=== PATIENT | female | born 1925 | race Caucasian/White ===

== ENCOUNTER 2016-09-06 20:11 | Emergency (ER) | payer MEDICARE, OTHER ==
[~2016-09-06] VITALS: Ht 157.5 cm; Wt 70.8 kg
[~2016-09-06 20:11] MED LIST: ACET650T10 PO; ASPI81TA2 PO; CARV6.252 PO; CLON0.2T PO; FERR-58 PO; FURO40TA5 PO; GLIM2TAB2 PO; INDO25CA PO; MULT1TAB73 PO; NIFE30TA7 PO; ROSU40TA PO; TRAM50TA2 PO
--- NOTE | 2016-09-06 20:36 | NUR ---
PT FAMILY STATES PT BP IS HIGH TODAY, PT IS NONSYMPTOMATIC. PT AOX3 [place] SPEAKING DRT AT BEDSIDE FOR EVAL. RR EVEN AND UNLABORED. NO SOB NOTED. NAD NOTED. NO NVD AT THIS TIME. PT GOWNED AND PLACED ON MONITOR WAITING FOR MD PHAN.
--- NOTE | 2016-09-06 20:42 | NUR ---
DR. OSPINA AT BEDSIDE FOR EVAL.
[2016-09-06] MEDS ORDERED: METOPROLOL TARTRATE 25 MG TABLET ONE (20:55)
[2016-09-06] MEDS ORDERED: METOPROLOL TARTRATE 25 MG TABLET PO ONE (21:00)
--- NOTE | 2016-09-06 21:02 | NUR ---
Patient discharged to home in stable condition. Written and verbal after care instructions given. Patient verbalizes understanding of instruction. ambulatory with a steady gait
[2016-09-06 21:05] VITALS: BP 173/69
== END 2016-09-06 21:05 | disposition home or self-care (01) ==
LOC: ER 20:13
DX: I10 Essential (primary) hypertension (principal); I25.10 Atherosclerotic heart disease of native coronary artery without angina pectoris; E11.9 Type 2 diabetes mellitus without complications; M19.90 Unspecified osteoarthritis, unspecified site; Z79.82 Long term (current) use of aspirin; Z79.899 Other long term (current) drug therapy
CPT/HCPCS: 93005; 99283; A4606; Z7610

== ENCOUNTER 2016-10-15 00:24 | Emergency (ER) | payer MEDICARE, OTHER ==
[~2016-10-15] VITALS: Ht 160 cm; Wt 65.8 kg
--- NOTE | 2016-10-15 01:00 | NUR ---
89 YO FEMALE BB FAMILY. PT IS ALERT X 3, C/O HIGH BLOOD PRESSURE. PT DENIES CP/SOB/N/V/ANY OTHER MEDICAL COMPLAINTS. PT AMBULATED TO ER BED, SKIN WARM AND DRY, RR EVEN AND UNLABORED. AWAITING ORDERS FROM PROVIDER
[2016-10-15] MEDS ORDERED: ENALAPRILAT DIHYD. (2.5MG/ML) 1.25 MG/ML VIAL IV ONE ×2 (01:29→01:30)
--- NOTE | 2016-10-15 01:40 | NUR ---
MEDICATED PT ORDERED
[2016-10-15 02:06] LABS: CALCIUM, SERUM 8.6 mg/dL (8.5-10.1); CREATININE 1.6 mg/dL (0.6-1.3); POTASSIUM 4.8 mmol/L (3.5-5.1)
--- NOTE | 2016-10-15 02:10 | NUR ---
PT SBP IS 127, MD NOTIFIED
[2016-10-15 02:35] LABS: APPEARANCE,URINE CLEAR (CLEAR); BILIRUBIN,URINE NEGATIVE (NEGATIVE); BLOOD, URINE NEGATIVE Ery/uL (NEGATIVE); COLOR,URINE YELLOW (YELLOW); KETONES,URINE NEGATIVE (NEGATIVE); LEUKOCYTE ESTERASE ,URINE NEGATIVE (NEGATIVE); NITRITE, URINE NEGATIVE (NEGATIVE); PH,URINE 5.5 (5.0-8.0); PROTEIN,URINE NEGATIVE (NEGATIVE); UGLUCOSE NEGATIVE (NEGATIVE); UROBILINOGEN,URINE 0.2 EU/dL (0.2)
--- NOTE | 2016-10-15 02:55 | NUR ---
PT PB IS 156/65. MD RIOS NOTIFIED
[2016-10-15 03:05] VITALS: BP 149/65
--- NOTE | 2016-10-15 03:05 | NUR ---
Patient discharged to home in stable condition. Written and verbal after care instructions given. Patient verbalizes understanding of instruction.IV removed. Catheter intact and site benign. Pressure and 4x4 applied to site. No bleeding noted. PT ambulatory with a steady gait VITAL SIGNS WITHIN NORMAL LIMITS.
== END 2016-10-15 03:07 | disposition home or self-care (01) ==
LOC: ER 00:24
DX: I10 Essential (primary) hypertension (principal); E11.9 Type 2 diabetes mellitus without complications; I25.10 Atherosclerotic heart disease of native coronary artery without angina pectoris; M19.90 Unspecified osteoarthritis, unspecified site; Z79.82 Long term (current) use of aspirin; Z98.890 Other specified postprocedural states
CPT/HCPCS: 36415; 80048; 81001; 93005; 96374; 99285; A4606; J3490; 81000-TC; Z7610

== ENCOUNTER 2017-04-16 08:05 | Emergency (ER) | payer MEDICARE, OTHER ==
[~2017-04-16] VITALS: Ht 162.6 cm; Wt 79.8 kg
--- NOTE | 2017-04-16 08:13 | NUR ---
pt to ed room 05. [id number] from home: palpitations since last night. a/a/o. side raisl up. hob elevated. changed to gown. connected to [facility]. isaias kirkland at bedside for eval.
--- NOTE | 2017-04-16 08:20 | NUR ---
IV ACCESS STARTED. BLOOD DRAWN FOR LABS. SAFETY AND COMFORT MEASURES PROVIDED. WILL MONITOR.
[2017-04-16 08:44] LABS: BASOPHILS # (AUTO) 0.1 /CMM (0.0-0.2); BASOPHILS % (AUTO) 0.6 % (0.0-2.0); EOSINOPHILS % (AUTO) 0.5 % (0.0-6.0); HEMATOCRIT 31 % (33-45); LYMPHOCYTES # (AUTO) 1.5 /CMM (0.8-4.8); LYMPHOCYTES % (AUTO) 16.2 % (20.0-44.0); MEAN CORPUSCULAR HEMOGLOBIN 27 PG (26.0-33.0); MEAN CORPUSCULAR HGB CONC 32 g/dl (31.0-36.0); MEAN CORPUSCULAR VOLUME 85 fL (82-100); MONOCYTES # (AUTO) 0.6 /CMM (0.1-1.30); MONOCYTES % (AUTO) 6.3 % (2.0-12.0); NEUTROPHILS # (AUTO) 6.9 /CMM (1.8-8.9); NEUTROPHILS % (AUTO) 76.4 % (43.0-81.0); PLATELET COUNT (AUTO) 239 /CMM (150-450); RDW COEFFICIENT OF VARIATION 15.9 (11.5-15.0); RED BLOOD CELL COUNT(AUTO) 3.66 MIL/uL (4.0-5.2); WHITE BLOOD COUNT (AUTO) 9.1 K/uL (4.3-11.0)
--- NOTE | 2017-04-16 08:51 | NUR ---
NAS AT BS.
[2017-04-16 08:53] LABS: CALCIUM, SERUM 9.2 mg/dL (8.5-10.1); CARBON DIOXIDE 22 mmol/L (21-32); CHLORIDE 106 mmol/L (98-107); CREATININE 1.9 mg/dL (0.6-1.3); GLUCOSE 99 mg/dL (74-106); POTASSIUM 4.7 mmol/L (3.5-5.1); SODIUM SERUM 139 mmol/L (136-145); UREA NITROGEN, BLOOD 57 mg/dL (7-18)
[2017-04-16 09:01] LABS: TROPONIN I < 0.017 ng/mL (0.00-0.056)
--- NOTE | 2017-04-16 09:16 | NUR ---
IV removed. Catheter intact and site benign. Pressure and 4x4 applied to site. No bleeding noted.Patient discharged to home in stable condition. Written and verbal after care instructions given. Patient verbalizes understanding of instruction.
[2017-04-16 09:17] VITALS: BP 159/85
== END 2017-04-16 09:19 | disposition home or self-care (01) ==
LOC: ER 08:07
DX: R00.2 Palpitations (principal); I10 Essential (primary) hypertension; E11.9 Type 2 diabetes mellitus without complications; I25.10 Atherosclerotic heart disease of native coronary artery without angina pectoris; I70.0 Atherosclerosis of aorta; M19.90 Unspecified osteoarthritis, unspecified site; Z79.82 Long term (current) use of aspirin
CPT/HCPCS: 36415; 71010; 80048; 84484; 85025; 93005; 99285; A4606; Z7610